=== PATIENT | female | born 1985 | race African-American/Black ===

== ENCOUNTER 2020-12-05 01:22 | Emergency (ER) | payer OTHER ==
[~2020-12-05] VITALS: Ht 170.2 cm; Wt 86.2 kg
[2020-12-05] MEDS ORDERED: KETO10TA2 PO (02:05)
[2020-12-05] MEDS ORDERED: SILVADENE20 GM TOP (02:05)
[2020-12-05] MEDS ORDERED: CEPHALEXIN500 MG PO (02:05)
== END 2020-12-05 02:13 | disposition home or self-care (01) ==
LOC: ER 01:22
DX: T24.211A Burn of second degree of right thigh, initial encounter (principal); X10.0XXA Contact with hot drinks, initial encounter; Y93.89 Activity, other specified; Y92.59 Other trade areas as the place of occurrence of the external cause; Y99.8 Other external cause status